=== PATIENT | male | born 1985 | race Two or more races ===

== ENCOUNTER 2025-06-08 06:53 | Day surgery (SDC) | payer MEDICAID ==
[2025-06-02 10:24] LABS: Hematocrit 46.9 % (41.0-53.0); Hemoglobin 16.3 g/dL (13.5-17.5); Mean Corpuscular Hemoglobin 28.4 pg (28.0-32.0); Mean Corpuscular Volume 81.5 fL (80.0-100.0); Nucleated Red Blood Cells % 0.0 %
[2025-06-02 10:38] LABS: Urine Protein, UAD Negative (Negative)
[2025-06-02 10:40] LABS: INR 1.07 (0.9-1.15); Partial Thromboplastin Time 34.0 SEC (24.5-34.5); Prothrombin Time 11.3 sec (9.3-11.8)
[2025-06-02 10:56] LABS: Alanine Aminotransferase 19 U/L (7-40); Alkaline Phosphatase 57 U/L (46-116); Anion Gap 10 (5-15); BUN/Creatinine Ratio 16.2 (10.0-20.0); Bilirubin, Total 0.8 mg/dL (0.2-1.0); Blood Urea Nitrogen 16 mg/dL (9-23); Calcium 10.1 mg/dL (8.7-10.4); Carbon Dioxide 27 mmol/L (20-31); Chloride 102 mmol/L (98-107); Glucose 104 mg/dL (74-106); Potassium 4.5 mmol/L (3.5-5.1); Sodium 139 mmol/L (136-145); Total Protein 8.1 g/dL (5.7-8.2)
[2025-06-02 10:57] LABS: Albumin 5.0 g/dL (3.2-4.8)
[~2025-06-08] VITALS: Ht 182.9 cm; Wt 98.4 kg
[~2025-06-08 06:53] MED LIST: APIX5TAB PO; BERB500C PO; CHOL20004 PO; CYAN-37 PO; INSLANTI SC; MAGN400T40 PO; METF-370 PO; OMEG100062 PO
[2025-06-08] MEDS ORDERED: ceFAZolin 2 GM/D5W50ml 50 ML IV ONE (07:23)
[2025-06-08] MEDS ORDERED: PROPOFOL 10 MG/ML 20 ML IV ONE (07:48)
[2025-06-08] MEDS ORDERED: ONDANSETRON HCL 4 MG/2 ML VIAL ONE (07:48)
[2025-06-08] MEDS ORDERED: MIDAZOLAM HCL 2MG/2ML 2ml VIAL (1mg/ml) ONE (07:48)
[2025-06-08] MEDS ORDERED: GLYCOPYRROLATE 0.2 MG/ML 1ML VIAL ONE (07:48)
[2025-06-08] MEDS ORDERED: KETOROLAC TROMETH 30 MG/ML 1ML VIAL ONE (07:48)
[2025-06-08] MEDS: BUPIVACAINE 0.5% P/F INJ 10 ML VIAL ONE (08:22)
[2025-06-08] MEDS: LIDOCAINE W/ EPINEPHRINE 1% 20ML VIAL ONE (08:22)
[2025-06-08] MEDS ORDERED: HYDROmorphone HCL 2 MG/ML VL/or syr ONE (08:30)
[2025-06-08] MEDS ORDERED: POVIDONE IODINE 10 % TOPICAL OINT 30GM TOP ONE (08:43)
[2025-06-08 08:48] VITALS: PULSE 88; RESP 18; TEMP 98.4; O2SAT 98
[2025-06-08] MEDS ORDERED: fentaNYL CITRATE 100 MCG/2 ML VL IV PRN (09:00)
[2025-06-08 10:03] VITALS: BP 111/51; PULSE 82; RESP 12; O2SAT 95
--- NOTE | 2025-06-08 17:42 | DVHOP2 ---
Operative Report - 2 Report Details Date: 06/08/25 Preop Diagnosis: Non-healing necrotic wound, right lower extremity. Postop Diagnosis: Non-healing necrotic wound, right lower extremity. Surgeon: Diamond Qureshi, Anesthesiologist: Dr. Kaba Anesthesia: Mac Consent: The patient was informed of the risks and benefits of the procedure. These include but are not limited to complications of anesthesia, postoperative infection, incomplete relief of symptoms, recurrence of symptoms, damage to blood vessels, nerves and tendons, deep venous thrombosis, pulmonary embolism and possible need for repeat surgery in the future. Name of Procedure Performed Excisional debridement of necrotic wound, right lower extremity, with primary closure. Procedure Details Procedure Details: After obtaining consent, the patient was brought into the operating room and placed in the supine position. Adequate Monitored Anesthesia Care was administered. The right lower extremity was prepped with wet Betadine and draped in a standard sterile fashion. The tissue surrounding the wound was then infiltrated with a 1:1 mixture of 0.25% Marcaine and 1% lidocaine with epinephrine. A vertical elliptical incision was made to excise the necrotic tissue completely. The wound was then thoroughly irrigated with normal saline. Wound closure was accomplished using 0 Prolene and 2-0 Prolene sutures in a vertical mattress fashion. At the conclusion of the procedure, sponge, needle, and blade counts were confirmed to be correct. Dressings were applied, consisting of Betadine ointment and an Brijesh bandage wrap. The patient tolerated the procedure well and was transferred to the recovery unit in stable condition. The patient's spouse and mother were updated in the waiting room. Specimen: necrotic tissue Condition Good Disposition Home DIAMOND QURESHI NP Jun 08, 2025 17:42
== END 2025-06-08 10:25 | disposition home or self-care (01) ==
LOC: SUR 06:53
PROVIDERS: ATTEND Surgery
DX: S81.801A Unspecified open wound, right lower leg, initial encounter (principal); T81.89XA Other complications of procedures, not elsewhere classified, initial encounter; X58.XXXA Exposure to other specified factors, initial encounter; Y93.89 Activity, other specified; Y92.89 Other specified places as the place of occurrence of the external cause; Y99.8 Other external cause status; E11.9 Type 2 diabetes mellitus without complications; Z98.890 Other specified postprocedural states
CPT/HCPCS: 11042; 36415; 80053; 81001; 82962; 85025; 85610; 85730; 88305; J0690; J1171; J1885; J2250; J2405; J2704; J3490; J7030